=== PATIENT | female | born 1965 | race Caucasian/White ===

== ENCOUNTER → 2016-11-16 | Outpatient (CLI) | payer OTHER ==
[2016-06-12 18:28] VITALS: BP 129/72
[~2016-11-16] MED LIST: ALBU8.5H8 IH; ASPI325T8 PO; CARV12.5 PO; CELE200C PO; CHOL400C PO; FERR-26 PO; FLUT1DIS5 IH; GABA-585 PO; GLIP10TA13 PO; HYDR25TA9 PO; LAMO50TA3 PO; LISI10TA2 PO; MULT-18 PO; NIAC500T9 PO; NITR0.4T22 SL; OMEG500C PO; PANT40TA3 PO; SAXA5TAB PO; SPIR25TA3 PO; metformin PO
--- NOTE | 2016-11-16 15:13 | RAD ---
Lumbar spine, 3 views, 11/16/2016: History: Pain and numbness in right leg The lumbar vertebral heights are well-maintained. There is moderate disc space narrowing at L4-5 and L5-S1. There are moderate scattered marginal spurs. There are moderate degenerative changes involving the facet joints bilaterally in the lower lumbar spine. There is a mild associated grade 1 spondylolisthesis at L4-5. Aortic calcific plaquing is present. IMPRESSION: 1. Moderate degenerative disc disease at L4-5 and L5-S1. 2. Mild spondylolisthesis at L4-5 due to facet joint arthropathy.
== END | disposition home or self-care (01) ==
LOC: DXRADRC 13:53
PROVIDERS: ATTEND Family Medicine
DX: M43.16 Spondylolisthesis, lumbar region (principal); M51.36 Other intervertebral disc degeneration, lumbar region; M51.37 Other intervertebral disc degeneration, lumbosacral region; R20.0 Anesthesia of skin; M12.88 Other specific arthropathies, not elsewhere classified, other specified site
CPT/HCPCS: 72100

== ENCOUNTER 2016-11-25 09:09 | Emergency (ER) | payer OTHER ==
--- NOTE | 2016-11-25 09:27 | EKG ---
[address] [address] Test Date: 2016-11-25 Test Time: 09:16:39 Pat Name: EULALIA ALCOCER Department: Room: Gender: F Multilith Operator: : 1965 Requested By: GWEN CANO Order Number: [id number] Reading MD: Measurements Intervals [place] Rate: 63 P: 0 MO: 110 QRS: 4 QRSD: 72 T: 11 QT: 384 QTc: 396 Interpretive Statements SINUS RHYTHM NORMAL ECG RI6.01 Unconfirmed report No previous ECG available for comparison
[2016-11-25 09:40] LABS: BASO % 0 % (0-3); EOS # 0.2 x10^3/uL (0.0-0.7); EOS % 2 % (0-3); HEMATOCRIT 40.6 % (36.0-47.0); HEMOGLOBIN 13.9 g/dL (12.0-15.5); LYMPH # 2.1 x10^3/uL (1.0-4.8); LYMPH % 24 % (24-48); MEAN CORPUSCULAR HEMOGLOBIN 30 pg (25-35); MEAN CORPUSCULAR HGB CONC 34 g/dL (31-37); MEAN CORPUSCULAR VOLUME 89 fL (79-100); MONO # 0.7 x10^3/uL (0.0-1.1); MONO % 8 % (0-9); NEUT # 5.8 x10^3uL (1.8-7.7); NEUT % 65 % (31-73); PLATELET COUNT 249 x10^3/uL (140-400); RED BLOOD COUNT 4.58 x10^6/uL (3.50-5.40); WHITE BLOOD COUNT 8.9 x10^3/uL (4.0-11.0)
--- NOTE | 2016-11-25 09:44 | RAD ---
PA and lateral chest radiographs 11/25/2016 Clinical history: Left-sided chest pain for 2 days. PA and lateral digital radiographs of the chest were obtained. Comparison study is dated 06/12/2016. A pacemaker is unchanged position. Surgical clips are seen within the right upper quadrant of the abdomen consistent with a cholecystectomy. The patient is post right shoulder joint replacement, unchanged. The cardiac silhouette is normal in size. Atherosclerotic calcification of the thoracic aorta is seen. The thoracic aorta is minimally tortuous. A 5 mm calcified granuloma is seen in the right upper lobe. No acute pulmonary infiltrate is seen. No pleural effusion or pneumothorax is noted. The osseous structures are unchanged. Impression: No acute abnormality is seen.
--- NOTE | 2016-11-25 10:01 | PHYS DOC ---
Past History Past Medical History: Anemia, Bipolar, COPD, High Cholesterol, Hypertension, Other Past Surgical History: Cholecystectomy, Gastric Bypass, Pacemaker Smoking: Non-smoker Alcohol Use: None Drug Use: None Adult General Chief Complaint Chief Complaint: CHEST PAIN HPI HPI Patient is a 51-year-old female who presents ambulatory to the emergency department with the complaint of chest pain since just today. She noticed the left-sided chest pain yesterday and it was not severe, it has continued and been constant since yesterday and is worse today. It hurts more when she tries to move her left arm, she has difficulty moving her left arm. It hurts worse when she sits up. She does not recall any injury. She doesn't believe she's had this pain before. She denies cough, denies fever or chills. She has not taken anything for the pain. Patient does have a pacemaker because her heartbeat was too slow. She does not know why it was. No history of [place] or other heart trouble. Patient is a nonsmoker. Review of Systems Review of Systems Constitutional: Denies fever or chills [] Respiratory: Denies cough or shortness of breath [] Cardiovascular: As in history of present illness Musculoskeletal: Denies back pain or joint pain [] Integument: Denies rash or skin lesions [] Current Medications Current Medications Current Medications Medications (Trade) Dose Ordered Sig/Amber Start Time Stop Time Status Last Admin Dose Admin Ketorolac Tromethamine (Toradol) 30 mg 1X ONCE 11/25/16 09:30 11/25/16 09:31 UNV Allergies Allergies Allergies Coded Allergies Type Severity Reaction Last Updated Verified risperidone Allergy Unknown Swelling 04/26/14 Yes Physical Exam Physical Exam Constitutional: Well developed, well nourished, no acute distress, non-toxic appearance. Alert, mentating normally, warm and dry. HENT: Normocephalic, atraumatic, bilateral external ears normal, nose normal. [] Eyes: conjunctiva normal, no discharge. [] Neck: Normal range of motion, no stridor. [] Cardiovascular:Heart rate regular rhythm, no murmur [] Lungs & Thorax: Bilateral breath sounds clear to auscultation Chest wall: Tenderness to palpation over the anterior lateral upper left chest wall and toward the left axilla. No skin abnormalities, no swelling, no obvious cause. Shoulder joint is without swelling or redness. Pacemaker incision is well -healed and healthy. The tenderness is not around the pacemaker. Pain is worsened when the patient is asked to sit up or moves on the cart. Skin: Warm, dry, no erythema, no rash. [] Extremities: No tenderness, no cyanosis, no clubbing, ROM intact, no edema. [] Neurologic: Alert and oriented X 3, normal motor function, normal sensory function, no focal deficits noted. [] Current Patient Data Lab Results Laboratory Tests Test 11/25/16 09:20 White Blood Count 8.9 x10^3/uL (4.0-11.0) Red Blood Count 4.58 x10^6/uL (3.50-5.40) Hemoglobin 13.9 g/dL (12.0-15.5) Hematocrit 40.6 % (36.0-47.0) Mean Corpuscular Volume 89 fL (79-100) Mean Corpuscular Hemoglobin 30 pg (25-35) Mean Corpuscular Hemoglobin Concent 34 g/dL (31-37) Red Cell Distribution Width 14.0 % (11.5-14.5) Platelet Count 249 x10^3/uL (140-400) Neutrophils (%) (Auto) 65 % (31-73) Lymphocytes (%) (Auto) 24 % (24-48) Monocytes (%) (Auto) 8 % (0-9) Eosinophils (%) (Auto) 2 % (0-3) Basophils (%) (Auto) 0 % (0-3) Neutrophils # (Auto) 5.8 x10^3uL (1.8-7.7) Lymphocytes # (Auto) 2.1 x10^3/uL (1.0-4.8) Monocytes # (Auto) 0.7 x10^3/uL (0.0-1.1) Eosinophils # (Auto) 0.2 x10^3/uL (0.0-0.7) Basophils # (Auto) 0.0 x10^3/uL (0.0-0.2) EKG EKG 12-lead EKG read by me. Sinus rhythm. Heart rate 63. There are no acute ST or T wave changes indicative of ischemia or infarction. No STEMI. 0 916 [] Radiology/Procedures Radiology/Procedures 2 view chest x-ray read by me. Heart size is normal. Lung mitchell are clear. Bony structures are normal. Pacemaker is visualized. No acute abnormality. [] Course & Med Decision Making Course & Med Decision Making Pertinent Labs and Imaging studies reviewed. (See chart for details) 51-year-old female with left-sided chest pain since yesterday which appears to be chest wall/musculoskeletal. We will check some labs, EKG, x-ray, and give the patient a dose of Toradol. She is agreeable to that plan. EKG, chest x-ray, labs are all unremarkable. She has had the pain for more than 12 hours and her troponin is negative. The pain clinically seems to be chest wall pain. See instructions for plan. [] Dragon Disclaimer Dragon Disclaimer This chart was dictated in whole or in part using Voice Recognition software in a busy, high-work load, and often noisy Emergency Department environment. It may contain unintended and wholly unrecognized errors or omissions. Departure Departure: Impression: Primary Impression: Chest wall pain Disposition: HOME, SELF-CARE Condition: STABLE Referrals: ERROL JOHNS MD (PCP) Patient Instructions: Chest Wall Pain, [id number]-Edtd Additional Instructions: Tests are all normal in the emergency department today. I don't believe the pain is coming from your heart. I believe it is coming from the tissues in your chest wall, like muscles and other soft tissues. Use ice 15-20 minutes out of every hour. Wear a supportive bra to support the area. Ibuprofen 800 mg (4 of the OTC 200 mg) every 6-8 hours as needed for pain. GWEN CANO MD Nov 25, 2016 10:01
[2016-11-25 10:06] LABS: ALBUMIN/GLOBULIN RATIO 1.1 (1.0-1.7); CALCIUM 9.1 mg/dL (8.5-10.1); CREATININE 0.9 mg/dL (0.6-1.0); GFR 65.5; POTASSIUM 4.1 mmol/L (3.5-5.1); TOTAL BILIRUBIN 0.4 mg/dL (0.2-1.0); TOTAL PROTEIN 7.5 g/dL (6.4-8.2)
[2016-11-25 10:15] VITALS: BP 118/64
[2016-11-25] MEDS ORDERED: KETOROLAC 30 MG/ML VIAL. IV ONE (10:15)
== END 2016-11-25 10:19 | disposition home or self-care (01) ==
LOC: ER 09:09
DX: R07.89 Other chest pain (principal); F31.9 Bipolar disorder, unspecified; J44.9 Chronic obstructive pulmonary disease, unspecified; E78.00 Pure hypercholesterolemia, unspecified; I10 Essential (primary) hypertension; Z95.0 Presence of cardiac pacemaker; Z96.611 Presence of right artificial shoulder joint; Z90.49 Acquired absence of other specified parts of digestive tract; Z98.84 Bariatric surgery status; Z88.8 Allergy status to other drugs, medicaments and biological substances
CPT/HCPCS: 36415; 71020; 80053; 82553; 84484; 85027; 93005; 96374; 99285; J1885

== ENCOUNTER 2017-04-18 10:49 | Observation (INO) | payer OTHER ==
[~2017-04-18] VITALS: Ht 162.6 cm; Wt 88.6 kg
[2017-04-18 11:30] LABS: BASO % 1 % (0-3); EOS # 0.3 x10^3/uL (0.0-0.7); EOS % 3 % (0-3); HEMATOCRIT 41.4 % (36.0-47.0); LYMPH # 2.2 x10^3/uL (1.0-4.8); LYMPH % 25 % (24-48); MEAN CORPUSCULAR HEMOGLOBIN 31 pg (25-35); MEAN CORPUSCULAR HGB CONC 34 g/dL (31-37); MEAN CORPUSCULAR VOLUME 91 fL (79-100); MONO # 0.6 x10^3/uL (0.0-1.1); MONO % 7 % (0-9); NEUT # 5.7 x10^3uL (1.8-7.7); NEUT % 65 % (31-73); PLATELET COUNT 256 x10^3/uL (140-400); RED BLOOD COUNT 4.57 x10^6/uL (3.50-5.40); RED CELL DISTRIBUTION WIDTH 14.1 % (11.5-14.5); WHITE BLOOD COUNT 8.8 x10^3/uL (4.0-11.0)
[2017-04-18] MEDS ORDERED: NITROGLYCERIN SUBLINGUAL 0.4 MG BOTTLE OF 25. SL ONE (11:30)
[2017-04-18] MEDS ORDERED: ASPIRIN 81 MG TAB.CHEW PO ONE (11:30)
--- NOTE | 2017-04-18 11:43 | RAD ---
INDICATION: CP COMPARISON: November 25, 2016 FINDINGS: Single view of chest obtained. Right shoulder arthroplasty changes. 2. Lead pacemaker. Cardiac silhouette not grossly enlarged. No definite focal airspace consolidation or pulmonary edema IMPRESSION: No focal airspace consolidation or edema.
[2017-04-18 11:51] LABS: ALBUMIN/GLOBULIN RATIO 1.2 (1.0-1.7); CALCIUM 9.2 mg/dL (8.5-10.1); CREATININE 0.7 mg/dL (0.6-1.0); GFR 87.5; MAGNESIUM 2.4 mg/dL (1.8-2.4); POTASSIUM 3.9 mmol/L (3.5-5.1); TOTAL BILIRUBIN 0.3 mg/dL (0.2-1.0); TOTAL PROTEIN 7.3 g/dL (6.4-8.2)
[2017-04-18] MEDS ORDERED: ONDANSETRON PF 4 MG/2 ML VIAL. IV PRN (13:45)
--- NOTE | 2017-04-18 15:00 | NUR ---
NSG NOTE; ADMISSION ADMIT TO ROOM 115 FROM ED AT 1445 VIA CART ACCOMP BY RICCO ORIENTED TO ROOM AND UNIT PROCEDURES
[2017-04-18 15:01] VITALS: BP 158/100
[2017-04-18] MEDS ORDERED: ASPI-612 PO (15:40)
[2017-04-18] MEDS ORDERED: TRAZ50TA15 PO (15:40)
[2017-04-18] MEDS ORDERED: PRAV40TA2 PO (15:40)
[2017-04-18] MEDS ORDERED: LURA40TA PO (15:40)
[2017-04-18] MEDS ORDERED: LITH450T16 PO (15:40)
[2017-04-18] MEDS ORDERED: OMEP20TA63 PO (15:40)
[2017-04-18] MEDS ORDERED: ALBUTEROL SULFATE 8GM INHALER. IH PRN (16:00)
[2017-04-18] MEDS ORDERED: NITROGLYCERIN SUBLINGUAL 0.4 MG BOTTLE OF 25. SL PRN (16:00)
[2017-04-18] MEDS ORDERED: hydroCHLOROthiazide 25 MG TABLET PO PRN (16:00)
[2017-04-18] MEDS ORDERED: ALBUTEROL SULFATE 2.5 MG/3 ML NEBU. NEB PRN (16:15)
--- NOTE | 2017-04-18 16:15 | HP ---
ADMIT DATE: 04/18/2017 HISTORY OF PRESENT ILLNESS: The patient is a 51-year-old female patient who came with complaint of left-sided chest pain that radiates to her left shoulder and left arm, started around [place] time when she was pushing the fridge that apparently has wheels and since then the pain has been there constantly. It is aggravated by movements and also by taking a deep breath. Denied, however, any shortness of breath. Denied any nausea, vomiting. She has night sweats constantly and is not related to the pain in particular. She was evaluated in the Emergency Room and a decision was made to admit her to do 2 more sets of cardiac enzyme as her first cardiac troponin was less than 0.017 and to do 2 more sets of cardiac enzyme, check fasting lipid profile and consult Dr. Mcgowan, her solution lead. PAST MEDICAL HISTORY: Significant for hypertension, hyperlipidemia. She has also bronchial asthma/COPD, osteoarthritis, degenerative disk disease. PAST SURGICAL HISTORY: Significant for left heart catheterization done twice by Drs. Austin and Juan M, the last one about 3 years ago. She has 3 C-sections, right shoulder replacement, permanent pacemaker placement and cholecystectomy. ALLERGIES: She is allergic to RISPERIDONE, CHERRIES and CATS and DOGS. MEDICATIONS: She is currently on albuterol sulfate 1 puff every 4 hours as needed, ferrous sulfate 325 mg once a day, gabapentin 100 mg daily, hydrochlorothiazide 25 mg once a day, lamotrigine 50 mg once a day, multivitamin 1 tablet once a day, niacin 500 mg tablet once a day, nitroglycerin 0.4 mg sublingually as needed for chest pain. FAMILY HISTORY: She has 2 sisters, both younger and have hypertension. She has a younger brother that she does not know much about him. Her father is still alive at age of 70, has coronary artery disease status post CABG and PTCA, hypertension, diabetes. Her mother at the age of 60 because of lung cancer. She smoked 2 packs per day for almost 30 years. SOCIAL HISTORY: She is from her . She has 2 boys. She smoked for about 6 months years ago. She does not drink alcohol. She is currently on disability. REVIEW OF SYSTEMS: The patient denied any blurring of vision, cataract, glaucoma or macular degeneration. Denied any earache, tinnitus or sensorineural deafness. Denied any nosebleeds, stuffy nose or postnasal drip. Denied any sore throat, sore tongue, toothache, hoarseness of voice or difficulty swallowing. Denied any nausea, vomiting, diarrhea or constipation. Denied any hematemesis, melena or hematochezia. Denied any dysuria, frequency or hematuria; however, she did complain of left-sided chest pain. Denied any cough, phlegm or hemoptysis. Denied any chills, rigors, or fever. Denied any dizziness, lightheadedness, or vertigo. PHYSICAL EXAMINATION: GENERAL: On arrival to the Emergency Room, she looked well and was clearly in no apparent respiratory distress. No pallor, jaundice, cyanosis, or thyromegaly. No jugular venous distension. No limb edema. VITAL SIGNS: Her heart rate was 61, blood pressure was 158/100, temperature was 97.8, respiratory rate 20, and oxygen saturation was 95% on room air. HEAD, EYES, EARS, NOSE AND THROAT: Showed normocephalic, atraumatic. NECK: Supple. HEART: Showed normal first and second sounds. No gallop, rub or murmur. CHEST: Clear to auscultation. No crepitation or rhonchi. ABDOMEN: Distended, soft, nontender. No guarding or rigidity. No organomegaly. Hernial orifice intact. Bowel sounds normal. NEUROLOGIC: She was awake, alert, responding appropriately. Her cranial nerves intact. She moves extremities without difficulty. She ambulates without assistance or assistive devices. LABORATORY DATA: While in the Emergency Room, she had lab work done, which showed a white cell count of 8800; hemoglobin 14; hematocrit 41; MCV 91; and platelet count 256,000. Her chemistry showed a serum sodium 144, potassium 3.9, chloride 106, bicarbonate 28, anion gap of 10, BUN 10, creatinine was 0.7, estimated GFR was 87 mL per minute. Her glucose was 92, calcium was 9.2, magnesium 2.4. Total bilirubin, AST, ALT, alkaline phosphatase were normal. Her total protein was 7.3, albumin 4, serum lipase was 85. Her first set of cardiac enzymes showed troponin to be less than 0.017. Her prothrombin time was 10.2, INR of 1, aPTT was 24. Her chest x-ray showed that she has right shoulder arthroplasty changes, two-lead pacemaker. Cardiac silhouette not grossly enlarged. No definite focal airspace consolidation or pulmonary edema. ASSESSMENT AND PLAN: The patient will be admitted. We will do 2 more sets of cardiac enzyme. We will consult Dr. Mcgowan, her solution lead. Check her fasting lipid profile tomorrow. I will also arrange for her to have a left-sided rib views to make sure that she does not have any broken ribs as the pain seemed to be fairly atypical and we will decide on further management accordingly. MALCOLM JOHN MD DR: ZENIA/mango JOB#: [id number] / [id number]
--- NOTE | 2017-04-18 16:31 | PHYS DOC ---
Past History Past Medical History: Anemia, Bipolar, COPD, Hypertension, Other Past Surgical History: Cholecystectomy, , Gastric Bypass, Pacemaker Smoking: Non-smoker Alcohol Use: None Drug Use: None Adult General Chief Complaint Chief Complaint: CHEST PAIN HPI HPI Patient is a 51-year-old female presenting to the emergency department for evaluation of chest pain that has been going on since . She says it is constant but that he gets much worse with exertion and she feels like a pressure on the left side of her chest and rates to her left shoulder and left arm. She says she has some diaphoresis but no nausea vomiting or shortness of breath. She has had a heart catheterization in the past and she follows with Dr. Mcgowan at [facility]. She is in no obvious distress with normal vital signs. Review of Systems Review of Systems Constitutional: Denies fever or chills [] Eyes: Denies change in visual acuity, redness, or eye pain [] HENT: Denies nasal congestion or sore throat [] Respiratory: Denies cough or shortness of breath [] Cardiovascular: + CP GI: Denies abdominal pain, nausea, vomiting, bloody stools or diarrhea [] : Denies dysuria or hematuria [] Musculoskeletal: Denies back pain or joint pain [] Integument: Denies rash or skin lesions [] Neurologic: Denies headache, focal weakness or sensory changes [] All other systems were reviewed and found to be within normal limits, except as documented in this note. Current Medications Current Medications Current Medications Medications (Trade) Dose Ordered Sig/Amber Start Time Stop Time Status Last Admin Dose Admin Albuterol Sulfate (Ventolin Hfa) 1 puff Q4HRS PRN 04/18/17 16:00 UNV Albuterol Sulfate (Ventolin) 2.5 mg PRN Q4HRS PRN 04/18/17 16:15 Aspirin (Aspirin Enteric Coated) 81 mg DAILY 04/19/17 09:00 Aspirin (Children'S Aspirin) 324 mg 1X ONCE 04/18/17 11:30 04/18/17 11:31 DC 04/18/17 11:26 324 MG Fentanyl Citrate (Fentanyl 2ml Vial) 50 mcg PRN Q2HR PRN 04/18/17 13:45 04/19/17 13:44 Ferrous Sulfate (Feosol) 325 mg TIDWMEALS 04/18/17 17:00 Gabapentin (Neurontin) 300 mg TID 04/18/17 21:00 Hydrochlorothiazide (Hydrodiuril) 25 mg PRN DAILY PRN 04/18/17 16:00 Influenza Virus Vaccine Quadrival (Fluarix Quad [id number] Syringe) 0.5 ml ONCE ONCE 04/19/17 09:00 04/19/17 09:01 Lamotrigine (LaMICtal) 50 mg DAILY 04/19/17 09:00 [place] Carbonate (Eskalith) 450 mg BID 04/18/17 21:00 Multivitamins/ Calcium (Thera-M Plus) 1 tab DAILY 04/19/17 09:00 Niacin (Slo-Niacin) 500 mg DAILY 04/19/17 09:00 Nitroglycerin (Nitrostat) 0.4 mg PRN Q5MIN PRN 04/18/17 16:00 Ondansetron HCl (Zofran) 4 mg PRN Q4HRS PRN 04/18/17 13:45 04/19/17 13:44 Pantoprazole Sodium (Protonix) 40 mg DAILY 04/19/17 09:00 Pneumococcal Polyvalent Vaccine (Pneumovax 23) 0.5 ml ONCE ONCE 04/19/17 09:00 04/19/17 09:01 Pravastatin Sodium (Pravachol) 40 mg QHS 04/18/17 21:00 Trazodone HCl (Desyrel) 75 mg QHS 04/18/17 21:00 Allergies Allergies Allergies Coded Allergies Type Severity Reaction Last Updated Verified risperidone Allergy Unknown Swelling 04/26/14 Yes Physical Exam Physical Exam Constitutional: Well developed, well nourished, no acute distress, non-toxic appearance. [] HENT: Normocephalic, atraumatic, bilateral external ears normal, oropharynx moist, no oral exudates, nose normal. [] Eyes: PERRLA, EOMI, conjunctiva normal, no discharge. [] Neck: Normal range of motion, no tenderness, supple, no stridor. [] Cardiovascular:Heart rate regular rhythm, no murmur [] Lungs & Thorax: Bilateral breath sounds clear to auscultation [] Abdomen: Bowel sounds normal, soft, no tenderness, no masses, no pulsatile masses. [] Skin: Warm, dry, no erythema, no rash. [] Back: No tenderness, no CVA tenderness. [] Extremities: No tenderness, no cyanosis, no clubbing, ROM intact, no edema. [] Neurologic: Alert and oriented X 3, normal motor function, normal sensory function, no focal deficits noted. [] Current Patient Data Vital Signs Vital Signs Date Time Temp Pulse Resp B/P (MAP) Pulse Ox O2 Delivery O2 Flow Rate FiO2 04/18/17 15:50 Room Air 04/18/17 15:01 97.8 61 20 158/100 (119) 95 Lab Results Laboratory Tests Test 04/18/17 11:15 04/18/17 15:55 White Blood Count 8.8 x10^3/uL (4.0-11.0) Red Blood Count 4.57 x10^6/uL (3.50-5.40) Hemoglobin 14.0 g/dL (12.0-15.5) Hematocrit 41.4 % (36.0-47.0) Mean Corpuscular Volume 91 fL (79-100) Mean Corpuscular Hemoglobin 31 pg (25-35) Mean Corpuscular Hemoglobin Concent 34 g/dL (31-37) Red Cell Distribution Width 14.1 % (11.5-14.5) Platelet Count 256 x10^3/uL (140-400) Neutrophils (%) (Auto) 65 % (31-73) Lymphocytes (%) (Auto) 25 % (24-48) Monocytes (%) (Auto) 7 % (0-9) Eosinophils (%) (Auto) 3 % (0-3) Basophils (%) (Auto) 1 % (0-3) Neutrophils # (Auto) 5.7 x10^3uL (1.8-7.7) Lymphocytes # (Auto) 2.2 x10^3/uL (1.0-4.8) Monocytes # (Auto) 0.6 x10^3/uL (0.0-1.1) Eosinophils # (Auto) 0.3 x10^3/uL (0.0-0.7) Basophils # (Auto) 0.0 x10^3/uL (0.0-0.2) Prothrombin Time 10.2 SEC (9.4-11.4) Prothrombin Time INR 1.0 (0.9-1.1) PTT 24 SEC (23-33) Sodium Level 144 mmol/L (136-145) Potassium Level 3.9 mmol/L (3.5-5.1) Chloride Level 106 mmol/L (98-107) Carbon Dioxide Level 28 mmol/L (21-32) Anion Gap 10 (6-14) Blood Urea Nitrogen 10 mg/dL (7-20) Creatinine 0.7 mg/dL (0.6-1.0) Estimated GFR (Cockcroft-Gault) 87.5 BUN/Creatinine Ratio 14 (6-20) Glucose Level 92 mg/dL (70-99) Calcium Level 9.2 mg/dL (8.5-10.1) Magnesium Level 2.4 mg/dL (1.8-2.4) Total Bilirubin 0.3 mg/dL (0.2-1.0) Aspartate Amino Transferase (AST) 16 U/L (15-37) Alanine Aminotransferase (ALT) 20 U/L (14-59) Alkaline Phosphatase 117 U/L (46-116) H Troponin I Quantitative < 0.017 ng/mL (0-0.055) AU-Osv-L-Type Natriuretic Peptide 49 pg/mL (0-124) Total Protein 7.3 g/dL (6.4-8.2) Albumin 4.0 g/dL (3.4-5.0) Albumin/Globulin Ratio 1.2 (1.0-1.7) Lipase 85 U/L (73-393) D-Dimer (Lexie) 0.58 mg/L (0.00-0.50) H EKG EKG Sinus rhythm at 69 bpm with normal axis no obvious ST elevation or depression and normal T waves Radiology/Procedures Radiology/Procedures INDICATION: CP COMPARISON: November 25, 2016 FINDINGS: Single view of chest obtained. Right shoulder arthroplasty changes. 2. Lead pacemaker. Cardiac silhouette not grossly enlarged. No definite focal airspace consolidation or pulmonary edema IMPRESSION: No focal airspace consolidation or edema. DICTATED AND SIGNED BY: OSCAR RASCON MD DATE: 04/18/17 1139 Course & Med Decision Making Course & Med Decision Making Patient with typical features to her chest pain given his more pressure exertion related. Nitroglycerin took her pain down to a 1. Her blood pressure was quite elevated initially but is now improved after nitroglycerin. She will be admitted for further observation and treatment. Of note patient was initially requesting to go to [facility] so he can always made there but it was found out that Dr. Mcgowan her business continuity analyst is coming here so she would very much prefer to stay here. She requested transfer as her business continuity analyst went there. She is agreeable to admission at [facility] Sivtlana Disclaimer Svitlana Disclaimer This electronic medical record was generated, in whole or in part, using a voice recognition dictation system. Departure Departure: Impression: Primary Impression: Chest pain Additional Impression: Hypertension Disposition: 09 ADMITTED INPATIENT Condition: STABLE Problem Qualifiers Primary Impression: Chest pain Chest pain type: unspecified Qualified Codes: R07.9 - Chest pain, unspecified MEENA GRIJALVA DO Apr 18, 2017 16:31
--- NOTE | 2017-04-18 16:31 | RAD ---
Left RIBS with chest, 3 views, 04/18/2017: History: Left-sided chest pain, injury No left-sided rib fracture is identified. There is no evidence of underlying pneumothorax, hemothorax or pulmonary infiltrate. The heart size is normal. A left-sided transvenous pacemaker is again noted with 2 leads extending into the right heart. A right shoulder prosthesis is in place. IMPRESSION: No acute left rib abnormality is detected.
--- NOTE | 2017-04-18 16:36 | EKG ---
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
--- NOTE | 2017-04-18 16:53 | NUR ---
NSG NOTE; DR BARBOSA CONSULT CALLED TO OFFICE STAFF HERMELINDA AT [id number]
[2017-04-18 18:52] VITALS: BP 146/86
[2017-04-18] MEDS ORDERED: PRAVASTATIN 20 MG TABLET. PO SCH (21:00)
[2017-04-18] MEDS ORDERED: traZODone 50 MG TABLET. PO SCH (21:00)
[2017-04-18] MEDS: FERROUS SULFATE 325 MG TABLET. PO SCH (21:13)
[2017-04-18] MEDS: LURASIDONE 40 MG TABLET. PO SCH (21:13)
[2017-04-18] MEDS: GABAPENTIN 100 MG CAPSULE. PO SCH (21:13)
[2017-04-18] MEDS: LITHIUM CARBONATE ER 450 MG TABLET.ER PO SCH (21:14)
[2017-04-18 22:10] VITALS: BP 93/60
[2017-04-19 05:32] VITALS: BP 114/72
[2017-04-19 07:21] LABS: BASO % 1 % (0-3); EOS # 0.2 x10^3/uL (0.0-0.7); EOS % 3 % (0-3); HEMATOCRIT 38.6 % (36.0-47.0); HEMOGLOBIN 13.2 g/dL (12.0-15.5); LYMPH # 1.8 x10^3/uL (1.0-4.8); LYMPH % 24 % (24-48); MEAN CORPUSCULAR HEMOGLOBIN 31 pg (25-35); MEAN CORPUSCULAR HGB CONC 34 g/dL (31-37); MEAN CORPUSCULAR VOLUME 91 fL (79-100); MONO # 0.6 x10^3/uL (0.0-1.1); MONO % 7 % (0-9); NEUT % 66 % (31-73); PLATELET COUNT 234 x10^3/uL (140-400); RED BLOOD COUNT 4.24 x10^6/uL (3.50-5.40); RED CELL DISTRIBUTION WIDTH 14.4 % (11.5-14.5); WHITE BLOOD COUNT 7.6 x10^3/uL (4.0-11.0)
[2017-04-19 07:25] LABS: ALBUMIN 3.4 g/dL (3.4-5.0); ALBUMIN/GLOBULIN RATIO 1.1 (1.0-1.7); CALCIUM 8.9 mg/dL (8.5-10.1); CREATININE 0.8 mg/dL (0.6-1.0); POTASSIUM 3.9 mmol/L (3.5-5.1); TOTAL BILIRUBIN 0.4 mg/dL (0.2-1.0); TOTAL PROTEIN 6.5 g/dL (6.4-8.2)
[2017-04-19] MEDS: FERROUS SULFATE 325 MG TABLET. PO SCH ×2 (08:02→13:36)
[2017-04-19] MEDS: GABAPENTIN 100 MG CAPSULE. PO SCH ×2 (08:03→13:37)
[2017-04-19] MEDS: LURASIDONE 40 MG TABLET. PO SCH (08:03)
[2017-04-19] MEDS: LITHIUM CARBONATE ER 450 MG TABLET.ER PO SCH (08:03)
--- NOTE | 2017-04-19 08:37 | NUR ---
PT is sitting up in bed eating breakfast. Pt is having more shoulder pain than chest pain. Lizet VICTORIA
[2017-04-19] MEDS ORDERED: ASPIRIN ENTERIC COATED 81 MG TABLET.DR. PO SCH (09:00)
[2017-04-19] MEDS ORDERED: PNEUMOC CONJ VACC 23-VALENT 0.5 ML VIAL. VAX IM ONE (09:00)
[2017-04-19] MEDS ORDERED: NIACIN ER 500 MG TABLET.ER PO SCH (09:00)
[2017-04-19] MEDS ORDERED: MULTIVITAMIN with MINERAL TABLET. PO SCH (09:00)
[2017-04-19] MEDS ORDERED: FLU VACC QS2017-18 (36MOS+)/PF 0.5 ML SYRINGE. VAX IM ONE (09:00)
[2017-04-19] MEDS ORDERED: PANTOPRAZOLE 40 MG TABLET. PO SCH (09:00)
[2017-04-19] MEDS ORDERED: lamoTRIgine 25 MG TABLET. PO SCH (09:00)
--- NOTE | 2017-04-19 09:00 | RAD ---
Bilateral lower extremity venous Doppler 04/19/2017 6:55 PM Indication: Elevated d-dimer Comparison: Lower extremity venous Doppler 06/21/2012 Technique: Sonographic evaluation of the bilateral lower extremity venous system was performed utilizing grayscale, Doppler and spectral waveform analysis. Findings: Right: There is normal color Doppler, compressibility and spectral analysis involving the common femoral vein, superficial femoral vein, popliteal vein, posterior tibial vein and greater saphenous vein. Left: There is normal color Doppler, compressibility and spectral analysis involving the common femoral vein, superficial femoral vein, popliteal vein, posterior tibial vein and greater saphenous vein. Impression: No evidence for lower extremity venous Doppler.
--- NOTE | 2017-04-19 10:05 | PDOC2 ---
CONSULT Date of Admission DATE: 04/19/17 TIME: 09:57 Reason for Consult: Chest pain. Referring Physician: Karolyn Chicas MD Chief Complaint Left shoulder and chest pain. Problem List Problems Medical Problems: (1) Chest pain Status: Acute (2) Chest pain Status: Acute (3) Hypertension Status: Acute History of Present Illness She has a history of mild to moderate coronary artery disease detected at cardiac catheterization in October,, hypertension, sick sinus syndrome status post permanent pacemaker, hyperlipidemia, COPD, and obesity. She has chronic left shoulder and chest pain. Usually this will only last for a few minutes then resolved. However, on she was moving a refrigerator and developed worse left shoulder pain with radiation into her axilla in the left upper chest. This would not go away. She took some Advil which helped a little. However, the shoulder pain was constant for over 1 pain was constant for over 1 week. Therefore, she came to the emergency room for further evaluation. She denies any other associated symptoms. Moving her left arm makes this worse. She denies any weakness in the arm. Since being here in the hospital, the shoulder pain has improved somewhat but not completely resolved. She has chronic intermittent lightheaded spells if she stands up too quickly. She denies syncope. She denies dyspnea, paroxysmal nocturnal dyspnea , orthopnea, palpitations, or lower extremity edema. Because of the chest pain, a cardiology consultation was requested. Cardiovascular: CAD, HTN, hyperipidemia Pulmonary: COPD Past Surgical History: Pacemaker Family History: Depression, Hypertension Smoke: No ALCOHOL: none Drugs: None Lives: with Family Current Medications Current Medications Aspirin (Children'S Aspirin) 324 mg 1X ONCE PO Last administered on 04/18/17at 11:26; Start 04/18/17 at 11:30; Stop 04/18/17 at 11:31; Status DC Nitroglycerin (Nitrostat) 0.4 mg 1X ONCE SL Last administered on 04/18/17at 11: 26; Start 04/18/17 at 11:30; Stop 04/18/17 at 11:31; Status DC Ondansetron HCl (Zofran) 4 mg PRN Q4HRS PRN IV NAUSEA/VOMITING; Start 04/18/17 at 13:45; Stop 04/19/17 at 13:44 Fentanyl Citrate (Fentanyl 2ml Vial) 50 mcg PRN Q2HR PRN IV PAIN; Start at 13:45; Stop 04/19/17 at 13:44 Albuterol Sulfate (Ventolin Hfa) 1 puff Q4HRS PRN IH SHORTNESS OF BREATH; Start 04/18/17 at 16:00; Status UNV Aspirin (Aspirin Enteric Coated) 81 mg DAILY PO Last administered on 04/19/17at 08:03; Start 04/19/17 at 09:00 Ferrous Sulfate (Feosol) 325 mg TIDWMEALS PO Last administered on 04/19/17at 08: 02; Start 04/18/17 at 17:00 Gabapentin (Neurontin) 300 mg TID PO Last administered on 04/19/17 08:03; Start 04/18/17 at 21:00 Hydrochlorothiazide (Hydrodiuril) 25 mg PRN DAILY PRN PO HIGH BLOOD PRESSURE; Start 04/18/17 at 16:00 Toco Carbonate (Eskalith) 450 mg BID PO Last administered on 04/19/17at 08:03 ; Start 04/18/17 at 21:00 Nitroglycerin (Nitrostat) 0.4 mg PRN Q5MIN PRN SL CHEST PAIN; Start 04/18/17 at 16:00 Trazodone HCl (Desyrel) 75 mg QHS PO Last administered on 04/18/17at 21:14; Start 04/18/17 at 21:00 Lamotrigine (LaMICtal) 50 mg DAILY PO Last administered on 04/19/17at 08:02; Start 04/19/17 at 09:00 Multivitamins/ Calcium (Thera-M Plus) 1 tab DAILY PO Last administered on at 08:03; Start 04/19/17 at 09:00 Niacin (Slo-Niacin) 500 mg DAILY PO Last administered on 04/19/17at 08:03; Start 04/19/17 at 09:00 Pantoprazole Sodium (Protonix) 40 mg DAILY PO Last administered on 04/19/17at 09: 00; Start 04/19/17 at 09:00 Pravastatin Sodium (Pravachol) 40 mg QHS PO Last administered on 04/18/17at 21:14 ; Start 04/18/17 at 21:00 Albuterol Sulfate (Ventolin) 2.5 mg PRN Q4HRS PRN NEB SHORTNESS OF BREATH; Start 04/18/17 at 16:15 Influenza Virus Vaccine Quadrival (Fluarix Quad 0615-2814 Syringe) 0.5 ml ONCE ONCE VAX IM Last administered on 04/19/17at 08:05; Start 04/19/17 at 09:00; Stop 04/19/17 at 09:01; Status DC Pneumococcal Polyvalent Vaccine (Pneumovax 23) 0.5 ml ONCE ONCE VAX IM Last administered on 04/19/17at 08:04; Start 04/19/17 at 09:00; Stop 04/19/17 at 09:01; Status DC Active Scripts Active Reported Toco Carbonate 450 Mg Tablet.er 1 Tab PO BID LAST DOSE GIVEN: DATE: TIME: NEXT DOSE DUE: DATE: TIME: Pravastatin Sodium 40 Mg Tablet 1 Tab PO QHS LAST DOSE GIVEN: DATE: TIME: NEXT DOSE DUE: DATE: TIME: Latuda (Lurasidone Hcl) 40 Mg Tablet 1 Tab PO QHS LAST DOSE GIVEN: DATE: TIME: NEXT DOSE DUE: DATE: TIME: Trazodone Hcl 50 Mg Tablet 1.5 Tab PO QHS LAST DOSE GIVEN: DATE: TIME: NEXT DOSE DUE: DATE: TIME: Aspirin Ec (Aspirin) 81 Mg Tablet.dr 1 Tab PO DAILY LAST DOSE GIVEN: DATE: TIME: NEXT DOSE DUE: DATE: TIME: Hydrochlorothiazide Tablet (Hydrochlorothiazide) 25 Mg Tablet 1 Tab PO DAILY PRN LAST DOSE GIVEN: DATE: TIME: NEXT DOSE DUE: DATE: TIME: Proair Hfa Inhaler (Albuterol Sulfate) 8.5 Gm Hfa.aer.ad 17 Gm IH Q4HRS PRN LAST DOSE GIVEN: DATE: TIME: NEXT DOSE DUE: DATE: TIME: Daily Vitamin (Multivitamin) 1 Each Tablet 1 Each PO DAILY LAST DOSE GIVEN: DATE: TIME: NEXT DOSE DUE: DATE: TIME: Niacin 500 Mg Tablet 500 Mg PO DAILY LAST DOSE GIVEN: DATE: TIME: NEXT DOSE DUE: DATE: TIME: Gabapentin 100 Mg Capsule 300 Mg PO TID LAST DOSE GIVEN: DATE: TIME: NEXT DOSE DUE: DATE: TIME: Ferrous Sulfate 325 Mg Tablet 325 Mg PO TID LAST DOSE GIVEN: DATE: TIME: NEXT DOSE DUE: DATE: TIME: Lamotrigine 50 Mg Tab.er.24 50 Mg PO DAILY LAST DOSE GIVEN: DATE: TIME: NEXT DOSE DUE: DATE: TIME: NITROGLYCERIN SubLingual (Nitroglycerin) 0.4 Mg Tab.subl 0.4 Mg SL LAST DOSE GIVEN: DATE: TIME: NEXT DOSE DUE: DATE: TIME: Allergies: Coded Allergies: risperidone (Verified Allergy, Unknown, Swelling, 04/26/14) Review of System Review of 10 organ systems is as per the HPI, otherwise negative. General: Alert, Oriented X3, Cooperative, No acute distress HEENT: Atraumatic, EOMI, Mucous membr. moist/pink Lungs: Clear to auscultation, Normal air movement Heart: Regular rate, Normal S1, Normal S2, No murmurs Abdomen: Normal bowel sounds, Soft, No tenderness Extremities: No clubbing, No cyanosis, No edema, Normal pulses, No tenderness/ swelling Skin: No rashes, No breakdown, No significant lesion Neuro: Normal gait, Normal speech, Strength at 5/5 X4 ext, Normal tone, Cranial nerves 3-12 NL Psych/Mental Status: Mental status NL, Mood NL VITALS Vital Signs Date Time Temp Pulse Resp B/P (MAP) Pulse Ox O2 Delivery O2 Flow Rate FiO2 04/19/17 08:35 Room Air 04/19/17 05:32 98.2 66 18 114/72 (86) 95 Labs Laboratory Tests Test 04/18/17 11:15 04/18/17 15:55 04/18/17 17:05 04/18/17 22:55 White Blood Count 8.8 x10^3/uL (4.0-11.0) Red Blood Count 4.57 x10^6/uL (3.50-5.40) Hemoglobin 14.0 g/dL (12.0-15.5) Hematocrit 41.4 % (36.0-47.0) Mean Corpuscular Volume 91 fL (79-100) Mean Corpuscular Hemoglobin 31 pg (25-35) Mean Corpuscular Hemoglobin Concent 34 g/dL (31-37) Red Cell Distribution Width 14.1 % (11.5-14.5) Platelet Count 256 x10^3/uL (140-400) Neutrophils (%) (Auto) 65 % (31-73) Lymphocytes (%) (Auto) 25 % (24-48) Monocytes (%) (Auto) 7 % (0-9) Eosinophils (%) (Auto) 3 % (0-3) Basophils (%) (Auto) 1 % (0-3) Neutrophils # (Auto) 5.7 x10^3uL (1.8-7.7) Lymphocytes # (Auto) 2.2 x10^3/uL (1.0-4.8) Monocytes # (Auto) 0.6 x10^3/uL (0.0-1.1) Eosinophils # (Auto) 0.3 x10^3/uL (0.0-0.7) Basophils # (Auto) 0.0 x10^3/uL (0.0-0.2) Prothrombin Time 10.2 SEC (9.4-11.4) Prothromb Time International Ratio 1.0 (0.9-1.1) Activated Partial Thromboplast Time 24 SEC (23-33) Sodium Level 144 mmol/L (136-145) Potassium Level 3.9 mmol/L (3.5-5.1) Chloride Level 106 mmol/L (98-107) Carbon Dioxide Level 28 mmol/L (21-32) Anion Gap 10 (6-14) Blood Urea Nitrogen 10 mg/dL (7-20) Creatinine 0.7 mg/dL (0.6-1.0) Estimated GFR (Cockcroft-Gault) 87.5 BUN/Creatinine Ratio 14 (6-20) Glucose Level 92 mg/dL (70-99) Calcium Level 9.2 mg/dL (8.5-10.1) Magnesium Level 2.4 mg/dL (1.8-2.4) Total Bilirubin 0.3 mg/dL (0.2-1.0) Aspartate Amino Transf (AST/SGOT) 16 U/L (15-37) Alanine Aminotransferase (ALT/SGPT) 20 U/L (14-59) Alkaline Phosphatase 117 U/L (46-116) Troponin I Quantitative < 0.017 ng/mL (0-0.055) < 0.017 ng/mL (0-0.055) < 0.017 ng/mL (0-0.055) WG-Tlj-B-Type Natriuretic Peptide 49 pg/mL (0-124) Total Protein 7.3 g/dL (6.4-8.2) Albumin 4.0 g/dL (3.4-5.0) Albumin/Globulin Ratio 1.2 (1.0-1.7) Lipase 85 U/L (73-393) D-Dimer (Lexie) 0.58 mg/L (0.00-0.50) Test 04/19/17 06:17 White Blood Count 7.6 x10^3/uL (4.0-11.0) Red Blood Count 4.24 x10^6/uL (3.50-5.40) Hemoglobin 13.2 g/dL (12.0-15.5) Hematocrit 38.6 % (36.0-47.0) Mean Corpuscular Volume 91 fL (79-100) Mean Corpuscular Hemoglobin 31 pg (25-35) Mean Corpuscular Hemoglobin Concent 34 g/dL (31-37) Red Cell Distribution Width 14.4 % (11.5-14.5) Platelet Count 234 x10^3/uL (140-400) Neutrophils (%) (Auto) 66 % (31-73) Lymphocytes (%) (Auto) 24 % (24-48) Monocytes (%) (Auto) 7 % (0-9) Eosinophils (%) (Auto) 3 % (0-3) Basophils (%) (Auto) 1 % (0-3) Neutrophils # (Auto) 5.0 x10^3uL (1.8-7.7) Lymphocytes # (Auto) 1.8 x10^3/uL (1.0-4.8) Monocytes # (Auto) 0.6 x10^3/uL (0.0-1.1) Eosinophils # (Auto) 0.2 x10^3/uL (0.0-0.7) Basophils # (Auto) 0.0 x10^3/uL (0.0-0.2) Sodium Level 142 mmol/L (136-145) Potassium Level 3.9 mmol/L (3.5-5.1) Chloride Level 106 mmol/L (98-107) Carbon Dioxide Level 28 mmol/L (21-32) Anion Gap 8 (6-14) Blood Urea Nitrogen 10 mg/dL (7-20) Creatinine 0.8 mg/dL (0.6-1.0) Estimated GFR (Cockcroft-Gault) 75.0 BUN/Creatinine Ratio 13 (6-20) Glucose Level 115 mg/dL (70-99) Calcium Level 8.9 mg/dL (8.5-10.1) Total Bilirubin 0.4 mg/dL (0.2-1.0) Aspartate Amino Transf (AST/SGOT) 11 U/L (15-37) Alanine Aminotransferase (ALT/SGPT) 17 U/L (14-59) Alkaline Phosphatase 96 U/L (46-116) Total Protein 6.5 g/dL (6.4-8.2) Albumin 3.4 g/dL (3.4-5.0) Albumin/Globulin Ratio 1.1 (1.0-1.7) Assessment/Plan Chest pain. She has no EKG changes and 3 negative troponin levels. I suspect this is musculoskeletal due to left shoulder pain with radiation to the chest. I will obtain an x-ray the left shoulder. No additional cardiac testing is indicated for this problem at this point in time. Coronary artery disease. She is not having angina. As above, I suspect the chest pain is due to left shoulder inflammation. She just had a recent stress test in January 2017 that was normal. I recommend she continue on the present guideline directed medical therapy for her mild to moderate coronary artery disease. Essential hypertension. Blood pressure appears reasonably controlled with the present medications. These should be continued. Hypercholesterolemia. Continue statin medication. Disposition. FRom a cardiac standpoint, the patient can be discharged home. She has an appointment to see me in the office next week. I would like her to keep that appointment. Problems: MEENA BARBOSA Jr, MD Apr 19, 2017 10:05
[2017-04-19 11:23] VITALS: BP 99/61
--- NOTE | 2017-04-19 13:08 | RAD ---
Exam: Left shoulder radiograph 04/19/2017 Indication: Shoulder pain Comparison: None available Technique: 3 views of the left shoulder are provided. Findings: There is no acute fracture or dislocation. Ossific fragment along the posterolateral left humeral head is present. This may predispose to calcific tendinitis. There is subtle superior migration of the humeral head which may suggest underlying chronic rotator cuff arthropathy. No joint space narrowing. No soft tissue swelling. No osseous erosion or soft tissue gas. Bone mineralization is within normal limits. Impression: No acute fracture or dislocation. There is suggestion of chronic rotator cuff arthropathy, as above.
--- NOTE | 2017-04-19 14:44 | NUR ---
PT dc to home pt is able to verbalize understanding discharge to home. PT has follow up with Dr Mcgowan, and needs to go see ortho. Lizet VICTORIA
--- NOTE | 2017-04-19 19:12 | DS ---
DATE OF DISCHARGE: 04/19/2017 HISTORY OF PRESENT ILLNESS: The patient is a 51-year-old female patient who came yesterday complaining of left-sided chest pain radiating to left shoulder and left arm. She did have 3 sets of cardiac enzymes, all of them together and EKG showed no evidence myocardial infarction with no ST segment elevation or depression. She apparently had a stress test done recently that was in January 2017 and that was normal. She was seen in consultation by the Cardiology team and x-ray of her left shoulder showed that she has no acute fracture or dislocation. However, there is suggestion of chronic rotator cuff arthropathy as above and as the patient remained hemodynamically stable, has had no further episode of chest pain. A decision was made to discharge her home with recommendation to follow with her orthopedic surgeon. PHYSICAL EXAMINATION: GENERAL: When I saw her this afternoon, she looked well and was clearly in no apparent respiratory distress, pale, but no jaundice, cyanosis, or thyromegaly. No jugular venous distention. No limb edema. VITAL SIGNS: Heart rate was 63, blood pressure was 99/61, temperature was 98.3, respiratory rate was 18 and oxygen saturation was 94%. HEAD, EYES, EARS, NOSE AND THROAT: Showed normocephalic, atraumatic. NECK: Supple. HEART: Showed normal first and second heart sounds with no gallop, rub or murmur. CHEST: Clear to auscultation. No crepitation or rhonchi. ABDOMEN: Distended, soft, and nontender. NEUROLOGIC: She is awake, alert, responding appropriately. Cranial nerves intact. EXTREMITIES: She moves extremities without difficulty. She ambulates without assistance or assistive devices. LABORATORY DATA: This morning showed a serum sodium of 142, potassium 3.9, chloride 105, bicarbonate 28, anion gap of 8, BUN 10, creatinine 0.8, estimated GFR was 75 mL per minute. Her glucose was 115, calcium was 8.9. Total bilirubin, AST, ALT, alkaline phosphatase were normal. Her total protein was 6.5, albumin 3.4. White cell count was 7500, hemoglobin 13, hematocrit 39, MCV 91, and platelet count 234,000. Her prothrombin time was 10.2, INR of 1, aPTT 24. D-dimer was slightly elevated at 0.58. The patient has had a chest x-ray, which was unremarkable. Left-sided rib review, which showed no evidence of rib fracture and x-ray of the left shoulder showed that there is subtle superior migration of the humeral head, which may suggest underlying chronic rotator cuff arthropathy. No joint space narrowing. No soft tissue swelling. No osseous erosions or soft tissue gas. Bone mineralization is within normal limits. She did have bilateral lower extremity venous Doppler ultrasound, which showed no evidence of deep vein thrombosis in both lower extremities. DISCHARGE MEDICATIONS: The patient was discharged home to continue on her home medication that included albuterol sulfate 1 puff every 4 hours, aspirin 81 mg once a day, ferrous sulfate 325 mg 3 times a day, gabapentin 300 mg 3 times a day, hydrochlorothiazide 25 mg once a day, lamotrigine 50 mg daily, lithium carbonate 450 mg p.o. b.i.d., Latuda 40 mg at bedtime, multivitamin 1 tablet once a day, niacin 500 mg once a day, nitroglycerin 0.4 mg sublingually as needed for chest pain, omeprazole 20 mg twice a day, pravastatin 40 mg at bedtime and trazodone 50 mg at bedtime. FINAL DISCHARGE DIAGNOSES: Atypical chest pain, myocardial infarction ruled out. ____ left shoulder x-ray showed suggestive of chronic rotator cuff tear. Other medical problems include hypertension, hyperlipidemia, bronchial asthma/chronic obstructive pulmonary disease, osteoarthritis and degenerative disk disease. MALCOLM JOHN MD DR: ZENIA/mango JOB#: [id number] / [id number]
[2017-04-20 19:05] LABS: LI 0.6 mmol/L (0.6-1.2)
== END 2017-04-19 14:20 | disposition home or self-care (01) ==
LOC: ER 10:49 → 1 SOUTH 13:40 → ER 14:35
PROVIDERS: ADMIT Internal Medicine; ATTEND Internal Medicine
DX: R07.89 Other chest pain (principal); I10 Essential (primary) hypertension; E78.5 Hyperlipidemia, unspecified; J44.9 Chronic obstructive pulmonary disease, unspecified; F31.9 Bipolar disorder, unspecified; E78.00 Pure hypercholesterolemia, unspecified; M19.90 Unspecified osteoarthritis, unspecified site; I25.10 Atherosclerotic heart disease of native coronary artery without angina pectoris; Z80.1 Family history of malignant neoplasm of trachea, bronchus and lung; Z81.8 Family history of other mental and behavioral disorders; Z82.49 Family history of ischemic heart disease and other diseases of the circulatory system; Z83.3 Family history of diabetes mellitus; Z87.891 Personal history of nicotine dependence; Z95.0 Presence of cardiac pacemaker; Z96.611 Presence of right artificial shoulder joint; Z98.84 Bariatric surgery status
CPT/HCPCS: 36415; 71045; 71101; 73030; 80053; 80178; 83690; 83735; 83880; 84484; 85025; 85379; 85610; 85730; 90471; 90472; 90686; 90732; 93005; 93970; 99285; G0378; G0379

== ENCOUNTER → 2017-11-28 | Outpatient (CLI) | payer OTHER ==
[~2017-11-28] MED LIST changes: +ASPI-612 PO; -FERR-26 PO; +FERR325T14 PO; +LITH450T16 PO; +LURA40TA PO; +OMEP20TA63 PO; +PRAV40TA2 PO; -SPIR25TA3 PO; +SPIR25TA5 PO; +TRAZ-85 PO
[2017-11-28 10:16] LABS: ALBUMIN 3.8 g/dL (3.4-5.0); CALCIUM 9.6 mg/dL (8.5-10.1); CREATININE 0.7 mg/dL (0.6-1.0); GFR 87.2; TOTAL BILIRUBIN 0.4 mg/dL (0.2-1.0); TOTAL PROTEIN 7.5 g/dL (6.4-8.2)
== END | disposition home or self-care (01) ==
LOC: LAB 09:22
PROVIDERS: ATTEND Nurse Practitioner
DX: E78.5 Hyperlipidemia, unspecified (principal); I10 Essential (primary) hypertension; E78.2 Mixed hyperlipidemia; E11.9 Type 2 diabetes mellitus without complications; E78.00 Pure hypercholesterolemia, unspecified; J44.9 Chronic obstructive pulmonary disease, unspecified; I25.10 Atherosclerotic heart disease of native coronary artery without angina pectoris; Z90.49 Acquired absence of other specified parts of digestive tract; Z80.1 Family history of malignant neoplasm of trachea, bronchus and lung; Z81.8 Family history of other mental and behavioral disorders; Z83.3 Family history of diabetes mellitus
CPT/HCPCS: 36415; 80053; 80061

== ENCOUNTER → 2018-06-01 | Outpatient (CLI) | payer OTHER ==
[~2018-06-01] MED LIST changes: +ALBU2.5V8 IH; -ALBU8.5H8 IH; +HYDR-2145 PO; -HYDR25TA9 PO; +TRAZ-120 PO; -TRAZ-85 PO
[2018-06-01 08:47] LABS: ALBUMIN 4.1 g/dL (3.4-5.0); ALBUMIN/GLOBULIN RATIO 1.3 (1.0-1.7); CALCIUM 9.1 mg/dL (8.5-10.1); CREATININE 0.8 mg/dL (0.6-1.0); GFR 74.7; POTASSIUM 4.1 mmol/L (3.5-5.1); TOTAL BILIRUBIN 0.4 mg/dL (0.2-1.0); TOTAL PROTEIN 7.2 g/dL (6.4-8.2)
== END | disposition home or self-care (01) ==
LOC: LAB 08:03
PROVIDERS: ATTEND Nurse Practitioner
DX: E78.5 Hyperlipidemia, unspecified (principal)
CPT/HCPCS: 36415; 80053; 80061

== ENCOUNTER → 2018-08-27 | Outpatient (CLI) | payer OTHER ==
[2018-08-27 08:51] LABS: BASO % 0 % (0-3); EOS # 0.3 x10^3/uL (0.0-0.7); EOS % 5 % (0-3); HEMATOCRIT 42.1 % (36.0-47.0); HEMOGLOBIN 14.1 g/dL (12.0-15.5); LYMPH # 1.8 x10^3/uL (1.0-4.8); LYMPH % 27 % (24-48); MEAN CORPUSCULAR HEMOGLOBIN 31 pg (25-35); MEAN CORPUSCULAR HGB CONC 33 g/dL (31-37); MEAN CORPUSCULAR VOLUME 94 fL (79-100); MONO # 0.5 x10^3/uL (0.0-1.1); MONO % 7 % (0-9); NEUT % 61 % (31-73); PLATELET COUNT 235 x10^3/uL (140-400); RED BLOOD COUNT 4.48 x10^6/uL (3.50-5.40); RED CELL DISTRIBUTION WIDTH 14.5 % (11.5-14.5); WHITE BLOOD COUNT 6.5 x10^3/uL (4.0-11.0)
[2018-08-27 08:58] LABS: ALBUMIN 3.6 g/dL (3.4-5.0); ALBUMIN/GLOBULIN RATIO 1.1 (1.0-1.7); CALCIUM 9.3 mg/dL (8.5-10.1); CREATININE 0.7 mg/dL (0.6-1.0); GFR 87.2; POTASSIUM 3.9 mmol/L (3.5-5.1); TOTAL BILIRUBIN 0.3 mg/dL (0.2-1.0); TOTAL PROTEIN 6.9 g/dL (6.4-8.2)
== END | disposition home or self-care (01) ==
LOC: LAB 08:06
PROVIDERS: ATTEND Clinical Nurse Specialist Psychiatric/Mental Health, Adult
DX: Z79.899 Other long term (current) drug therapy (principal)
CPT/HCPCS: 36415; 80053; 80061; 84146; 85025

== ENCOUNTER → 2018-12-04 | Outpatient (CLI) | payer OTHER ==
[2018-12-04 10:29] LABS: ALBUMIN 3.8 g/dL (3.4-5.0); ALBUMIN/GLOBULIN RATIO 1.1 (1.0-1.7); CALCIUM 9.3 mg/dL (8.5-10.1); CREATININE 0.9 mg/dL (0.6-1.0); POTASSIUM 4.3 mmol/L (3.5-5.1); TOTAL BILIRUBIN 0.3 mg/dL (0.2-1.0); TOTAL PROTEIN 7.2 g/dL (6.4-8.2)
== END | disposition home or self-care (01) ==
LOC: LAB 08:53
PROVIDERS: ATTEND Nurse Practitioner
DX: E78.5 Hyperlipidemia, unspecified (principal); E66.9 Obesity, unspecified
CPT/HCPCS: 36415; 80053; 80061; 83036

== ENCOUNTER 2019-01-25 12:17 | Emergency (ER) | payer OTHER ==
[~2019-01-25] VITALS: Ht 162.6 cm; Wt 94.3 kg
[2019-01-25 12:27] VITALS: BP 147/89
--- NOTE | 2019-01-25 13:09 | RAD ---
3 view study of the fifth digit of the right hand Clinical indications: Trauma and pain. FINDINGS: There is a fracture of a posterior spur of the proximal epiphysis of the fifth distal phalanx. There is degenerative osteoarthritis of the DIP joint of the fifth digit. No dislocation or lytic process is seen. IMPRESSION: Fracture of a posterior spur of the DIP joint. Electronically signed by: Nando Marcus MD (01/25/2019 1:06 PM) [id number]
--- NOTE | 2019-01-25 13:20 | PHYS DOC ---
Past History Past Medical History: Hypertension Past Surgical History: No Surgical History Smoking: Non-smoker Alcohol Use: None Drug Use: None Adult General Chief Complaint Chief Complaint: FINGER INJURY HPI HPI 53-year-old female presents with right little finger pain. The patient was trying to break up her dogs who were fighting. She went to swing a flash water at them and struck her finger on the side of a metal can all. She had immediate pain. Minutes later, she had bruising of the distal end of the finger. She wondered if she might a fractured it. Patient denies any previous trauma to this finger as far she knows. She denies any other injuries or complaints. Review of Systems Review of Systems Constitutional: Denies fever or chills [] Eyes: Denies change in visual acuity, redness, or eye pain [] HENT: Denies nasal congestion or sore throat [] Respiratory: Denies cough or shortness of breath [] Cardiovascular: No additional information not addressed in HPI [] GI: Denies abdominal pain, nausea, vomiting, bloody stools or diarrhea [] : Denies dysuria or hematuria [] Musculoskeletal: Right, distal fifth digit pain[] Integument: Denies rash or skin lesions [] Neurologic: Denies headache, focal weakness or sensory changes [] Endocrine: Denies polyuria or polydipsia [] All other systems were reviewed and found to be within normal limits, except as documented in this note. Allergies Allergies Allergies Coded Allergies Type Severity Reaction Last Updated Verified risperidone Allergy Unknown Swelling 04/26/14 Yes Physical Exam Physical Exam Constitutional: Well developed, well nourished, no acute distress, non-toxic appearance. [] HENT: Normocephalic, atraumatic, bilateral external ears normal, oropharynx moist, no oral exudates, nose normal. [] Eyes: PERRLA, EOMI, conjunctiva normal, no discharge. [] Neck: Normal range of motion, no tenderness, supple, no stridor. [] Cardiovascular:Heart rate regular rhythm, no murmur [] Lungs & Thorax: Bilateral breath sounds clear to auscultation [] Abdomen: Bowel sounds normal, soft, no tenderness, no masses, no pulsatile tea s. [] Skin: Warm, dry, no erythema, no rash. [] Back: No tenderness, no CVA tenderness. [] Extremities: Tenderness of the distal fifth finger on the right hand, ecchymosis, moderate swelling. [] Neurologic: Alert and oriented X 3, normal motor function, normal sensory function, no focal deficits noted. [] Psychologic: Affect normal, judgement normal, mood normal. [] Current Patient Data Vital Signs Vital Signs Date Time Temp Pulse Resp B/P (MAP) Pulse Ox O2 Delivery O2 Flow Rate FiO2 01/25/19 12:27 98.5 77 18 97 Room Air EKG EKG [] Radiology/Procedures Radiology/Procedures [] Impressions: 3 view study of the fifth digit of the right hand Clinical indications: Trauma and pain. FINDINGS: There is a fracture of a posterior spur of the proximal epiphysis of the fifth distal phalanx. There is degenerative osteoarthritis of the DIP joint of the fifth digit. No dislocation or lytic process is seen. IMPRESSION: Fracture of a posterior spur of the DIP joint. Electronically signed by: Jeanie Marcus MD (01/25/2019 1:06 PM) [id number] DICTATED AND SIGNED BY: JEANIE MARCUS MD DATE: 01/25/19 1306 CC: BERTRAM FERNANDEZ DO; ERROL JOHNS MD ~ Course & Med Decision Making Course & Med Decision Making Pertinent Labs and Imaging studies reviewed. (See chart for details) [] Dragon Disclaimer Dragon Disclaimer This electronic medical record was generated, in whole or in part, using a voice recognition dictation system. Departure Departure: Impression: Primary Impression: Fracture, finger, distal phalanx Disposition: 01 HOME, SELF-CARE Condition: STABLE Referrals: ERROL JOHNS MD (PCP) Patient Instructions: Finger Fracture, Glur-to-Eklc Problem Qualifiers Primary Impression: Fracture, finger, distal phalanx Encounter type: initial encounter Finger: little finger Fracture type: closed Fracture alignment: nondisplaced Laterality: right Qualified Codes: S62.666A - Nondisplaced fracture of distal phalanx of right little finger, initial encounter for closed fracture BERTRAM FERNANDEZ DO Jan 25, 2019 13:20
== END 2019-01-25 13:24 | disposition home or self-care (01) ==
LOC: ER 12:17
DX: S62.666A Nondisplaced fracture of distal phalanx of right little finger, initial encounter for closed fracture (principal); I10 Essential (primary) hypertension; Z88.8 Allergy status to other drugs, medicaments and biological substances; W22.8XXA Striking against or struck by other objects, initial encounter; Y93.89 Activity, other specified; Y92.89 Other specified places as the place of occurrence of the external cause; Y99.8 Other external cause status
CPT/HCPCS: 73140; 99284

== ENCOUNTER → 2020-12-10 | Outpatient (CLI) | payer OTHER ==
[~2020-12-10] MED LIST changes: -ASPI-612 PO; +ASPI-889 PO; +LISI10TA16 PO; -LISI10TA2 PO
--- NOTE | 2020-12-10 13:46 | RAD ---
CT HEAD INDICATION: SEVERE HEADACHE X 3 MO., DOUBLE VISION, NAUSEA COMPARISON: None Available. Exposure: One or more of the following individualized dose reduction techniques were utilized for thi s examination: 1. Automated exposure control 2. Adjustment of the mA and/or kV according to patient size 3. Use of iterative reconstruction technique TECHNIQUE: 5 mm contiguous axial images were obtained from the skull base to the vertex in both bone and soft tissue algorithm. FINDINGS: Small calcifications bilateral basal ganglia. Mild bilateral periventricular white matter hypodensiti es likely chronic small vessel ischemic disease. Small hypodensity in right cerebellar hemisphere lik janneth old infarct. No evidence of acute intracranial hemorrhage. No extra-axial fluid collections. No mass effect or midline shift. Ventricular size is appropriate. Basal cisterns are patent. No fractures identified.Sierra-white differentiation is preserved.Globes and orbits are within normal l imits. Paranasal sinuses and mastoid air cells are clear. IMPRESSION: 1. No acute intracranial findings. If symptoms persist consider MRI. 2. 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 Electronically signed by: Mundo Lal MD (12/10/2020 1:44 PM) [id number]
== END ==
LOC: RAD 12:08
PROVIDERS: ATTEND Family Medicine
DX: G98.8 Other disorders of nervous system (principal); R51.9 Headache, unspecified
CPT/HCPCS: 70450

== ENCOUNTER → 2021-02-22 | Outpatient (CLI) | payer OTHER ==
[2021-02-22 09:03] LABS: ALBUMIN 3.7 g/dL (3.4-5.0); ALBUMIN/GLOBULIN RATIO 1.1 (1.0-1.7); CALCIUM 9.1 mg/dL (8.5-10.1); CREATININE 0.7 mg/dL (0.6-1.0); GFR 86.2; POTASSIUM 4.3 mmol/L (3.5-5.1); TOTAL BILIRUBIN 0.3 mg/dL (0.2-1.0); TOTAL PROTEIN 7.2 g/dL (6.4-8.2)
== END ==
LOC: LAB 08:09
PROVIDERS: ATTEND Nurse Practitioner
DX: E78.5 Hyperlipidemia, unspecified (principal); E88.81 Metabolic syndrome and other insulin resistance
CPT/HCPCS: 36415; 80053; 80061; 83036

== ENCOUNTER → 2021-07-09 | Outpatient (CLI) | payer OTHER ==
[~2021-07-09] MED LIST changes: -LURA40TA PO; +LURA40TA2 PO
== END ==
LOC: LAB 12:09
PROVIDERS: ATTEND Nurse Practitioner Family
DX: R51.9 Headache, unspecified (principal)
CPT/HCPCS: 36415; 85651

== ENCOUNTER → 2021-07-09 | Outpatient (CLI) | payer OTHER ==
[2021-07-09 14:44] LABS: BASO % 0 % (0-3); EOS # 0.2 x10^3/uL (0.0-0.7); EOS % 3 % (0-3); HEMATOCRIT 40.3 % (36.0-47.0); HEMOGLOBIN 13.1 g/dL (12.0-15.5); LYMPH # 1.7 x10^3/uL (1.0-4.8); LYMPH % 26 % (24-48); MEAN CORPUSCULAR HEMOGLOBIN 30 pg (25-35); MEAN CORPUSCULAR HGB CONC 33 g/dL (31-37); MEAN CORPUSCULAR VOLUME 93 fL (79-100); MONO # 0.4 x10^3/uL (0.0-1.1); MONO % 6 % (0-9); NEUT # 4.3 x10^3uL (1.8-7.7); NEUT % 65 % (31-73); PLATELET COUNT 280 x10^3/uL (140-400); RED BLOOD COUNT 4.32 x10^6/uL (3.50-5.40); RED CELL DISTRIBUTION WIDTH 15.3 % (11.5-14.5); WHITE BLOOD COUNT 6.6 x10^3/uL (4.0-11.0)
[2021-07-09 15:33] LABS: ALBUMIN 3.9 g/dL (3.4-5.0); ALBUMIN/GLOBULIN RATIO 1.4 (1.0-1.7); CALCIUM 8.9 mg/dL (8.5-10.1); CREATININE 0.7 mg/dL (0.6-1.0); GFR 86.2; POTASSIUM 4.4 mmol/L (3.5-5.1); TOTAL BILIRUBIN 0.3 mg/dL (0.2-1.0); TOTAL PROTEIN 6.6 g/dL (6.4-8.2)
[2021-07-10 13:13] LABS: CHOLESTEROL/HDL RATIO 2.3
== END ==
LOC: LAB 12:17
PROVIDERS: ATTEND Clinical Nurse Specialist Psychiatric/Mental Health, Adult
DX: F33.1 Major depressive disorder, recurrent, moderate (principal)
CPT/HCPCS: 36415; 80053; 80061; 83036; 84146; 85025